=== PATIENT | male | born 1985 | race Hispanic/Latino ===

== ENCOUNTER 2020-10-02 13:09 | Emergency (ER) | payer OTHER, SELFPAY ==
[2020-10-02 13:33] VITALS: BP 146/95; PULSE 82; RESP 14; TEMP 36.3; O2SAT 98; BMI 35.2
[2020-10-02 14:56] LABS: Bacteria Urine None Seen
[2020-10-02 15:04] LABS: Culture Indicated Urine Cult Not Indicated; RBC Urine 0-1/HPF (0-5/HPF); Squamous Epithelial Cell Urine 0-1 /HPF (0-5/HPF); WBC Urine 0-1/HPF (0-5/HPF)
[2020-10-02] MEDS: SODIUM CHLORIDE 0.9% 1,000 ML 1000 ML IV (15:07)
[2020-10-02] MEDS: ONDANSETRON 4 MG/2 ML INJ IV (15:08)
[2020-10-02] MEDS: KETOROLAC 30 MG/ML VIAL IV (15:08)
--- NOTE | 2020-10-02 15:08 | DI.CT.S_ITS ---
PROCEDURE: CT KIDNEY URETER BLADDER (KUB) INDICATIONS: flank pain w/ + blood in urine TECHNIQUE: Axial sections were acquired from the lung bases to the pubic symphysis. Coronal and sagittal reformats were performed. For radiation dose reduction, the following was used: automated exposure control, adjustment of mA and/or kV according to patient size. COMPARISON:None. FINDINGS: Image quality: Excellent. Lung bases: Unremarkable. Heart: No significant findings. URINARY: Right Kidney: No stones or hydronephrosis. Right Ureter: No hydroureter. Left Kidney: 4 millimeter nonobstructing stone noted in the inferior pole of left kidney. 1 millimeter nonobstructing stone noted in the inferior pole of the left kidney. Mild left-sided hydronephrosis. Left Ureter: 3 millimeter stone at the left UVJ causing mild left-sided hydroureter. Bladder: Normal wall thickness. No stones. ABDOMEN: Liver: Unremarkable. Gallbladder: Unremarkable. Biliary ducts: Unremarkable. Pancreas: Unremarkable. Spleen: Unremarkable. Adrenal Glands: Unremarkable. Stomach and Bowel: Stomach, small bowel loops, and colon are unremarkable. The appendix is normal. Peritoneum: No abnormal intraperitoneal fluid. No free air. Ventral Wall: No hernia. Abdominal Nodes: No enlarged retroperitoneal or mesenteric lymph nodes. Vessels: Aorta and inferior vena cava are normal in size. PELVIS: Pelvic Organs: Unremarkable. Pelvic Nodes: Unremarkable. Miscellaneous: No inguinal hernias are seen. Bones: Unremarkable. IMPRESSION: 1. 3 millimeter left UVJ stone causing mild left-sided hydroureteronephrosis. 2. 4 millimeter in 1 millimeter nonobstructing left renal stones. Dictated by: Martha Reeder MD, PhD on 10/02/2020 at 16:10 Approved by: Martha Reeder MD, PhD on 10/02/2020 at 16:13
--- NOTE | 2020-10-02 15:16 | PC.NURSE ---
right flank pain, not worse w/ movement or palpation. Denies fever/ chills/ chest pain/ shortness of breath/ Pt is pink/warm and dry.
[2020-10-02 15:54] LABS: Add Manual Diff / Slide Review NO; Basophils Absolute Auto 0 /uL (0-100); Basophils Percent Auto 0.2 % (0-2); Eosinophils Absolute Auto 0 /uL (0-450); Eosinophils Percent Auto 0.2 % (2-4); Hematocrit 41.2 % (41-53); Hemoglobin 14.2 g/dL (13.5-17.5); Lymphocytes Absolute Auto 900 /uL (1100-4500); Lymphocytes Percent Auto 10.7 % (25-40); Mean Corpuscular HGB Conc 34.4 % (30-36); Mean Corpuscular Hemoglobin 29.7 PG (26-34); Mean Corpuscular Volume 86.3 fL (80-100); Monocytes Absolute Auto 700 /uL (0-900); Monocytes Percent Auto 8.2 % (3-14); Neutrophils Absolute Auto 7000 /uL (1500-7000); Neutrophils Percent Auto 80.7 % (50-75); Platelet Count 222 X10^3/uL (150-400); Red Blood Cell Count 4.77 X10^6/uL (4.5-5.9); Red Cell Distribution Width 12.7 % (11.6-14.8); White Blood Cell Count 8.7 X10^3/uL (4.5-11.0)
[2020-10-02 16:03] LABS: BUN Creatinine Ratio 14.8 (6-22); Blood Urea Nitrogen 24 mg/dL (9-20); Calcium 9.3 mg/dL (8.4-10.2); Carbon Dioxide 27 mmol/L (22-32); Chloride 101 mmol/L (98-107); Estimated Glomerular Filt Rate 48.5 mL/min (>60); Glucose 100 mg/dL (70-100); HEMOLYSIS 44 (0-50); Sodium 138 mmol/L (137-145)
--- NOTE | 2020-10-02 17:29 | ED.MALEGU ---
HPI - Male Genitourinary General Chief complaint: Urogenital-Male Stated complaint: severe left side pain, started this morning Time Seen by Provider: 10/02/20 16:52 Source: patient Mode of arrival: Ambulatory Limitations: no limitations History of Present Illness HPI Narrative: This is a 35-year-old male comes emergency department complaint of flank pain starting this morning that continued to progress. Patient states it has been intermittent and in waves. Will be quite uncomfortable at times. Patient has felt nauseated and was vomiting earlier. Patient states he has not had similar symptoms in the past. He has not had any fevers. He states the pain has moved a little bit to the front. Patient denies any major changes to bowel movements. He has not had any hematuria, dysuria frequency. He states he has been urinating as frequently and thinks he may have been dehydrated lately. Patient denies any major medical issues. He does not take any daily medications. He has not had kidney stones in the past. He denies any major intra-abdominal surgeries. Patient does not have any known history of chronic kidney disease. Related Data Previous Rx's Medication Instructions Recorded oxycodone 5 mg tablet 5 mg PO QID PRN #14 tab 10/02/20 tamsulosin 0.4 mg capsule (Flomax) 0.4 mg PO DAILY #7 cap 10/02/20 Allergies Allergy/AdvReac Type Severity Reaction Status Date / Time No Known Drug Allergies Allergy Verified 10/02/20 13:36 Review of Systems Review of Systems ROS Unobtainable: All systems reviewed & are unremarkable except as noted in HPI and below Patient History Social History Smoking Status: Never smoker Smoking Status: Never smoker alcohol intake frequency: 0-2 drinks per day Substance Use Type: does not use Exam Narrative Exam Narrative: GENERAL: Alert and oriented x three, male in mild distress. Patient is seated in recliner comfortably. HEENT: Head normocephalic, atraumatic, EOMI, pupils reactive, face symmetric, moist mucous membranes NECK: Supple, full range of motion CARDIOVASCULAR: Regular rate and rhythm without murmurs, rubs or gallops. RESPIRATORY: Breath sounds equal bilaterally, no wheezes rales or rhonchi. ABDOMEN: Soft, nontender. Normoactive bowel sounds all 4 quadrants. No guarding or rebound, rigidity, no mass : No CVA tenderness bilaterally EXTREMITIES: Normal range of motion. Neurovascularly intact NEUROLOGICAL: Cranial nerves II through XII grossly intact. Moving all extremities SKIN: Warm, dry, no petechiae, no rashes or lesions. Initial Vital Signs Initial Vital Signs: Vital Signs Temperature 97.4 F L 10/02/20 13:33 Pulse Rate 82 10/02/20 13:33 Respiratory Rate 14 10/02/20 13:33 Blood Pressure 146/95 H 10/02/20 13:33 Pulse Oximetry 98 10/02/20 13:33 Course Orders Ordered: ED Orders 10/02/20 14:00 Urine Microscopic Stat 10/02/20 15:01 BMP [Basic Metabolic Panel] Stat Complete Blood Count AUTO DIFF Stat 10/02/20 15:08 CT kidney ureter bladder (KUB) Stat Discontinued Medications Sodium Chloride (Normal Saline 0.9%) 1,000 mls @ 1,000 mls/hr IV BOLUS ONE Stop: 10/02/20 15:50 Last Infusion: 10/02/20 16:15 Dose: 0 mls/hr Documented by: Admin: 10/02/20 15:07 Dose: 1,000 mls/hr Documented by: CORWIN Ketorolac Tromethamine (Ketorolac 30 Mg/Ml Vial) 30 mg IV NOW ONE Stop: 10/02/20 14:45 Last Admin: 10/02/20 15:08 Dose: 30 mg Documented by: CORWIN Ondansetron HCl (Ondansetron 4 Mg/2 Ml Inj) 4 mg IV NOW ONE Stop: 10/02/20 14:45 Last Admin: 10/02/20 15:08 Dose: 4 mg Documented by: CORWIN Tamsulosin HCl (Tamsulosin 0.4 Mg Capsule) 0.4 mg PO NOW ONE Stop: 10/02/20 16:53 Last Admin: 10/02/20 18:16 Dose: 0.4 mg Documented by: CORWIN Vital Signs Vital signs: Vital Signs - 8 hr 10/02/20 13:33 10/02/20 18:27 Temperature 97.4 F L Pulse Rate 82 14 L Respiratory Rate 14 16 Blood Pressure 146/95 H 122/78 Pulse Oximetry 98 100 MDM - Male Genitourinary Lab Data Result diagrams: 10/02/20 15:01 10/02/20 15:01 Labs: Lab Results 10/02/20 10/02/20 10/02/20 Range/Units 14:00 15:01 15:01 WBC 8.7 (4.5-11.0) X10^3/uL RBC 4.77 (4.5-5.9) X10^6/uL Hgb 14.2 (13.5-17.5) g/dL Hct 41.2 (41-53) % MCV 86.3 (80-100) fL MCH 29.7 (26-34) PG MCHC 34.4 (30-36) % RDW 12.7 (11.6-14.8) % Plt Count 222 (150-400) X10^3/uL Neut % (Auto) 80.7 H (50-75) % Lymph % (Auto) 10.7 L (25-40) % [place] % (Auto) 8.2 (3-14) % Eos % (Auto) 0.2 L (2-4) % Baso % (Auto) 0.2 (0-2) % Neut # (Auto) 7000 (6636-4278) /uL Lymph # (Auto) 900 L (0189-9636) /uL [place] # (Auto) 700 (0-900) /uL Eos # (Auto) 0 (0-450) /uL Baso # (Auto) 0 (0-100) /uL Sodium 138 (137-145) mmol/L Potassium 4.0 (3.4-5.1) mmol/L Chloride 101 (98-107) mmol/L Carbon Dioxide 27 (22-32) mmol/L BUN 24 H (9-20) mg/dL Creatinine 1.62 H (0.66-1.25) mg/dL Estimated GFR 48.5 L (>60) mL/min BUN/Creatinine Ratio 14.8 (6-22) Glucose 100 (70-100) mg/dL Calcium 9.3 (8.4-10.2) mg/dL Urine RBC 0-1/hpf (0-5/HPF) Urine WBC 0-1/hpf (0-5/HPF) Ur Squamous Epith Cells 0-1 /hpf (0-5/HPF) Urine Bacteria None seen (None) Ur Culture Indicated? Cult not indicated Urine Dip Bedside Urine Glucose Negative Bedside Urine Bilirubin - Negative Bedside Urine Ketone - Negative Urine Specific [place] 1.015 Bedside Urine Occult Blood +/- Bedside Urine pH 7.0 Bedside Urine Protein - Negative Bedside Urine Urobilinogen - Negative Bedside Urine Nitrite - Negative Bedside Urine Leukocytes - Negative Esterase Imaging Data CT scan - abdomen/pelvis: Radiologist's Impression: [address] [id number] Scan ReportSigned Patient: Demetri Carey CMR#: [id number]: 1985Acct:[id number]/Sex: 35 / MDate of Service: 10/02/20Loc: EDAccession Number: [id number] Procedure: CT kidney ureter bladder (KUB) Ordering Provider: Kathy Guerra D.O. PROCEDURE: CT KIDNEY URETER BLADDER (KUB) INDICATIONS: flank pain w/ + blood in urine TECHNIQUE: Axial sections were acquired from the lung bases to the pubic symphysis. Coronal and sagittal reformats were performed. For radiation dose reduction, the following was used: automated exposure control, adjustment of mA and/or kV according to patient size. COMPARISON:None. FINDINGS: Image quality: Excellent. Lung bases: Unremarkable. Heart: No significant findings. URINARY: Right Kidney: No stones or hydronephrosis. Right Ureter: No hydroureter. Left Kidney: 4 millimeter nonobstructing stone noted in the inferior pole of left kidney. 1 millimeter nonobstructing stone noted in the inferior pole of the left kidney. Mild left-sided hydronephrosis. Left Ureter: 3 millimeter stone at the left UVJ causing mild left-sided hydroureter. Bladder: Normal wall thickness. No stones. ABDOMEN: Liver: Unremarkable. Gallbladder: Unremarkable. Biliary ducts: Unremarkable. Pancreas: Unremarkable. Spleen: Unremarkable. Adrenal Glands: Unremarkable. Stomach and Bowel: Stomach, small bowel loops, and colon are unremarkable. The appendix is normal. Peritoneum: No abnormal intraperitoneal fluid. No free air. Ventral Wall: No hernia. Abdominal Nodes: No enlarged retroperitoneal or mesenteric lymph nodes. Vessels: Aorta and inferior vena cava are normal in size. PELVIS: Pelvic Organs: Unremarkable. Pelvic Nodes: Unremarkable. Miscellaneous: No inguinal hernias are seen. Bones: Unremarkable. IMPRESSION: 1. 3 millimeter left UVJ stone causing mild left-sided hydroureteronephrosis. 2. 4 millimeter in 1 millimeter nonobstructing left renal stones. Dictated by: Martha Reeder MD, PhD on 10/02/2020 at 16:10 Approved by: Martah Reeder MD, PhD on 10/02/2020 at 16:13 , [facility] Narrative Medical decision making narrative: Male comes emergency department with acute onset of left-sided flank pain consistent with kidney stone and renal function is elevated but no priors for comparison I suspect this is new. Patient urine does not show any signs of infection. He significantly improved after Toradol. Patient's CT does show a 3 mm stone at the left UVJ with mild left-sided hydro. Discussed with patient he has been controlled at this time. Plan for Flomax, Tylenol oxycodone as needed for pain. Return if he is having worsening symptoms. If patient's symptoms have not completely resolved but he is doing well can follow-up with urology but he does need repeat renal function in the next several days to make sure that this is improving. Patient agreeable his primary care is Dr. Ibrahim and who is retired but his partners are still caring for Dr. Ibrahim patient. Encouraged to contact the Monday morning. If he is unable to follow-up he was asked to return here for repeat BMP. We discussed return precautions. Patient feels comfortable with this plan Discharge Plan Departure Patient Disposition: Home Clinical Impression: Kidney stone on left side Instructions: DI for Kidney Stones Activity Restrictions/Additional Instructions: Follow-up with your physician in the next week for recheck of her renal function. It is elevated today likely from your kidney stone, I have no priors for comparison so this does need to be rechecked. Dr. Francois or anyone from that group can follow up as your a prior patient of Dr. Ibrahim. Included is referral to Urology Take Flomax daily until gone Take Tylenol up to a 1000 mg every 8 hours as needed for pain. You may take oxycodone 1-2 tablets every 4-6 hours as needed for pain. This medication can make you sleepy do not drive, perform hazardous activities or make any major decisions while taking it. This medication will make you constipated please take a stool softener once to twice daily until stools are soft and regular. Prescription to [facility] in [place] Please return for fevers, lightheadedness or passing out, inability urinate, dark urine, rapidly worsening or intractable pain, persistent vomiting or other new or concerning symptoms. Prescriptions: New tamsulosin [Flomax] 0.4 mg capsule 0.4 mg PO DAILY Qty: 7 RF: 0 oxycodone 5 mg tablet 5 mg PO QID PRN (Reason: pain) Qty: 14 RF: 0 Referrals: Ritchie Bustillo MD [Physician] - Serjio Francois MD [Physician] -
[2020-10-02] MEDS: TAMSULOSIN 0.4 MG CAPSULE PO (18:16)
[2020-10-02 18:27] VITALS: BP 122/78; PULSE 14; RESP 16; O2SAT 100
== END 2020-10-02 18:30 | disposition home or self-care (01) ==
PROVIDERS: Emergency Provider Emergency Medicine
DX: N13.2 Hydronephrosis with renal and ureteral calculous obstruction (principal)
CPT/HCPCS: 36415; 74176; 80048; 81003; 81015; 85025; 96361; 96374; 96375; 99284; J1885; J2405

== ENCOUNTER → 2024-12-24 13:25 | Outpatient (CLI) | payer BC, SELFPAY ==
--- NOTE | 2024-12-24 13:26 | DI.RAD.S_ITS ---
PROCEDURE: XR SHOULDER LT MIN 2V INDICATIONS: Left shoulder pain TECHNIQUE: 3 views of the shoulder were acquired. COMPARISON: None. FINDINGS: Bones: No fractures or dislocations. No suspicious bony lesions. Visualized ribs appear intact. Soft tissues: No suspicious soft tissue calcifications. IMPRESSION: No acute bony abnormality. Dictated by: Gallo Snow M.D. on 12/24/2024 at 14:20 Approved by: Gallo Snow M.D. on 12/24/2024 at 14:20
== END ==
PROVIDERS: PCP Family Medicine; Referring Provider Registered Nurse; Visit Provider Registered Nurse
DX: M25.512 Pain in left shoulder (principal)
CPT/HCPCS: 73030